=== PATIENT | female | born 1955 | race African-American/Black ===

== ENCOUNTER 2019-07-05 21:06 | Emergency (ER) | payer OTHER, SELFPAY ==
[2019-07-05 21:08] VITALS: BP 182/101; PULSE 106; RESP 16; TEMP 36.8; O2SAT 100
--- NOTE | 2019-07-05 21:23 | ED.HA ---
HPI - Headache General Chief Complaint: Headache Stated Complaint: PAIN IN POSTERIOR HEAD Time Seen by Provider: 07/05/19 21:19 Source: patient and RN notes reviewed Mode of arrival: other Limitations: no limitations History of Present Illness HPI Narrative: Pt is a 64 y/o female who presents to the ED with c/o intermittent sharp left postauricular pain that began at 7:30 AM. She notes that her pain has alleviated from a 10/10 to an 8/10. She notes that she took Tylenol today for her sx. Pt has a hx of HTN and she notes that she took her medication as prescribed today. She states that she is going to see her floor press operator tomorrow for her chronic chest pain. Pt also reports otalgia and resolved numbness in her fingers, but denies ringing in ears, nause, dizziness, tingling, CP currently, change in vision, difficulty walking, fever, rhinorrhea, and congestion. MD elicited complaint: headache Pertinent past history: hypertension Onset (ago): hour(s) (14) Time: 07:30 Location: other (posterior) Severity: moderate Pain scale (0-10): 8 Quality & Timing: sharp Associated symptoms: numbness (in fingers (resolved)) and other (otalgia) Treatments prior to arrival: acetaminophen Related Data Home Medications Medication Instructions Recorded Confirmed atorvastatin 10 mg tablet 10 mg PO DAILY 05/13/19 hydrochlorothiazide 25 mg tablet 25 mg PO DAILY 05/13/19 linaclotide 145 mcg capsule 145 mcg PO DAILY 05/13/19 lisinopril 20 mg tablet 20 mg PO DAILY 05/13/19 Allergies Allergy/AdvReac Type Severity Reaction Status Date / Time No Known Allergies Allergy Mild NONE Unverified 04/12/19 11:52 Review of Systems Review of Systems: All systems reviewed & are unremarkable except as noted in HPI and below Constitutional: Constitutional: Denies fever(s) and Denies other (difficulty walking) Eyes: Eyes: Denies change in vision ENT: Reports otalgia and Denies other (ringing in her ears, rhinorrhea, congestion) Cardiovascular: Cardiovascular: Denies chest pain (currently) Gastrointestinal: Gastrointestinal: Denies nausea Neurologic: Denies dizziness, Reports headache(s) (posterior), Reports numbness (resolved, in fingers) and Denies tingling PMFSH Past Medical History Medical History (Updated 07/06/19 @ 00:09 by Talya Ho MD) Essential (primary) hypertension GERD (gastroesophageal reflux disease) Inguinal hernia Mixed hyperlipidemia Prediabetes Vitamin D deficiency, unspecified Surgical History Surgical History (Updated 07/05/19 @ 21:35 by Jackie Kraft) H/O inguinal hernia repair History of hysterectomy History of thyroid surgery repair Social History Social History Smoking status: Never smoker Exam Narrative: Exam Narrative: GENERAL: Well-appearing, well-nourished, and in no acute distress. HEAD: Normocephalic, atraumatic EYES: PERRLA and EOMI, conjunctiva clear without discharge EARS: TM's clear bilaterally without erythema or dullness NOSE: Nares clear, no rhinorrhea or epistaxis THROAT:Mucous membranes moist, Oropharynx normal without erythema, exudate, peritonsillar swelling or fluctuance NECK: Supple, without lymphadenopathy or mass RESPIRATORY: No respiratory distress, Airway patent, Respirations non-labored, Clear to auscultation without rales, rhonchi or wheeze HEART: Regular rate and rhythm. No murmur heard. Normal peripheral pulses. ABDOMEN: Soft, nontender, nondistended, normal active bowel sounds. No masses. No rebound or guarding, No organomegaly. EXTREMITIES: No edema, normal strength with full range of motion. SKIN: Warm, dry, normal color without rash NEURO: Alert and oriented x3. CN 2-12 grossly intact. No focal deficits. PSYCH: Normal mood and affect. Course Reevaluation(s) Reevaluation #1: PAtient is sleeping. I woke her to reassess. She states her pain has completely resolved. Her evaluation has be
--- NOTE | 2019-07-05 21:51 | ECG_ITS ---
Measurements Intervals [place] Rate: 100 P: 50 TX: 195 QRS: 15 QRSD: 79 T: 58 QT: 336 QTc: 434 Interpretive Statements SINUS TACHYCARDIA LEFT VENTRICULAR HYPERTROPHY AND ST-T CHANGE NONSPECIFIC ST ABNORMALTY- ANTERIOR LEADS BASELINE WANDER- I, II, III, AVR, AVL, AVF BORDERLINE ECG Electronically Signed On 07-06-2019 7:03:41 SOLAR SALES ASSESSOR by Nikko Lowry D.O.
[2019-07-05] MEDS: KETOROLAC 30 MG/ML VIAL (*BKC) IV PUSH (22:09)
[2019-07-05 22:12] LABS: Basophils Absolute Auto 0.1 K/mm3 (0.0-0.1); Basophils Percent Auto 1.6 % (0.2-1.2); Eosinophils Absolute Auto 0.2 K/mm3 (0-0.3); Eosinophils Percent Auto 2.8 % (0-4.4); Hematocrit 35.4 % (37.0-47.0); Hemoglobin 11.1 g/dL (12.0-15.0); Immature Granulocyte Absolute 0.01 K/mm3 (0.00-0.031); Immature Granulocyte Percent A 0.2 % (0-0.5); Lymphocytes Absolute Auto 2.59 K/mm3 (0.9-3.2); Lymphocytes Percent Auto 44.9 % (18.3-44.2); Mean Corpuscular HGB Conc 31.4 g/dl (32-36); Mean Corpuscular Volume 86.1 fl (80-100); Mean Platelet Volume 10.2 fl (7.4-10.4); Monocytes Absolute Auto 0.5 K/mm3 (0.1-0.6); Monocytes Percent Auto 9.2 % (2.6-8.5); Neutrophils Absolute Auto 2.4 K/mm3 (1.3-6.7); Neutrophils Percent Auto 41.3 % (45.5-73.1); Platelet Count Result 282 k/mm3 (150-375); Red Blood Count 4.11 M/mm3 (4.2-5.4); Red Cell Distribution Width 15.4 % (11.5-14.5); White Blood Count 5.8 K/mm3 (4.5-10.0)
[2019-07-05 22:25] VITALS: BP 137/89; PULSE 84; RESP 18; O2SAT 100
[2019-07-05 22:27] LABS: Alanine Aminotransferase 16 U/L (4-35); Albumin Level 4.3 g/dL (3.5-5.1); Alkaline Phosphatase 63 U/L (38-126); Aspartate Amino Transferase 26 U/L (14-36); Bilirubin,Total 0.3 mg/dL (0.2-1.3); Blood Urea Nitrogen 16 mg/dL (7-17); CRP < 0.5 mg/dL (<1.0); Calcium 9.4 mg/dL (8.4-10.2); Carbon Dioxide 26 mmol/L (22-30); Chloride 104 mmol/L (98-107); Estimated CRCL calculation 52 ml/min; Estimated Glomerular Filt Rate > 60; Glucose 115 mg/dL (65-105); Potassium 3.9 mmol/L (3.4-5.0); Sodium 143 mmol/L (137-145)
[2019-07-05 23:42] VITALS: BP 156/91; PULSE 88; RESP 17; O2SAT 99
[2019-07-06 00:28] VITALS: BP 156/84; PULSE 81; RESP 16; TEMP 37; O2SAT 100
== END 2019-07-06 00:29 | disposition home or self-care (01) ==
PROVIDERS: Emergency Provider General Practice; PCP Family Medicine
DX: H92.02 Otalgia, left ear (principal); I10 Essential (primary) hypertension; K21.9 Gastro-esophageal reflux disease without esophagitis; E78.5 Hyperlipidemia, unspecified
CPT/HCPCS: 36415; 80053; 85025; 86140; 93005; 96374; 99284; J1885

== ENCOUNTER 2019-08-22 15:15 | Emergency (ER) | payer OTHER, SELFPAY ==
--- NOTE | ~2019-08-22 | CT_ITS ---
EXAMINATION: CT brain wo con DATE: 08/22/2019 16:17 INDICATION: Right-sided headache TECHNIQUE: Computed tomography (CT) of the head was performed without intravenous contrast. The mA wa s adjusted according to patient size. Iterative reconstruction technique was employed. Exam dose: 60 5.33 mGy-cm total exam DLP. COMPARISON: None FINDINGS: Cerebral atherosclerotic calcifications are noted. No intracranial mass lesion or hemorrhage or cerebrovascular accident is evident. No midline shift or mass effects. Normal ventricular size. No subdural or epidural hematoma. The orbital contents are unremarkable. No fracture or bone destruction of the cranial vault. The mastoid air cells and included paranasal si nuses are normally developed and aerated. IMPRESSION: No acute intracranial finding Reviewed, dictated and finalized at [facility]. Reviewed, dictated and finalized at location B.
[2019-08-22 15:15] VITALS: BP 161/94; PULSE 93; RESP 16; TEMP 36.6; O2SAT 100
--- NOTE | 2019-08-22 16:18 | ED.HA ---
HPI - Headache General Chief Complaint: Headache <David Mirza PA-C - Last Filed: 08/22/19 18:00> Stated Complaint: headache x2 wks <David Mirza PA-C - Last Filed: 08/22/19 18:00> Time Seen by Provider: 08/22/19 15:40 <David Mirza PA-C - Last Filed: 08/22/19 18:00> Source: patient <BUDDY Matos Last Filed: 08/22/19 18:00> Mode of arrival: ambulatory <BUDDY Matos Last Filed: 08/22/19 18:00> Limitations: no limitations <David Mirza PA-C - Last Filed: 08/22/19 18:00> History of Present Illness HPI Narrative: Patient presents with chief complaint of sharp right-sided headache that builds from her adventist down the right side of her face intermittently over the past 2 weeks. Patient states she originally thought the headaches were due to changes in her amlodipine and isosorbide dinitrate however the amlodipine was decreased back to her original 5 mg dose and isosorbide dinitrate was discontinued 1 week ago. Patient states that her ring conductor is Dr. Pham. Patient denies any changes in vision or hearing. Patient states having the headaches of the same area intermittently makes her scared that there is something going on inside of her brain. She denies speech changes or neurological deficits. Patient denies fever, chills, nausea, vomiting, diarrhea or any other symptoms. Patient denies any head injury. <David Mirza PA-C - Last Filed: 08/22/19 18:00> Related Data Home Medications: Home Medications Medication Instructions Recorded Confirmed atorvastatin 10 mg tablet 10 mg PO DAILY 05/13/19 hydrochlorothiazide 25 mg tablet 25 mg PO DAILY 05/13/19 linaclotide 145 mcg capsule 145 mcg PO DAILY 05/13/19 lisinopril 20 mg tablet 20 mg PO DAILY 05/13/19 aspirin 81 mg PO DAILY 08/22/19 <BUDDY Matos Last Filed: 08/22/19 18:00> Allergies/Adverse Reactions: Allergies Allergy/AdvReac Type Severity Reaction Status Date / Time No Known Allergies Allergy Mild NONE Verified 08/22/19 15:30 <David Mirza PA-C - Last Filed: 08/22/19 18:00> Review of Systems Review of Systems: Narrative: CONSTITUTIONAL: Denies fever, chills, or sweats. EYES: Denies visual changes, redness, or discharge. ENT: Denies rhinorrhea, congestion, sore throat, or otalgia. CARDIOVASCULAR: Denies chest pain, palpitations, or edema. RESPIRATORY: Denies cough or dyspnea. GASTROINTESTINAL: Denies abdominal pain, nausea, vomiting, or diarrhea. GENITOURINARY: Denies dysuria or hematuria. SKIN: Denies rash or itching. MUSCULOSKELETAL: Denies back pain, joint pain, or myalgia. NEUROLOGIC: Reports right sided headache, denies numbness, dizziness, or weakness. PSYCHIATRIC: Denies anxiety or depression. <David Mirza PA-C - Last Filed: 08/22/19 18:00> PMFSH Past Medical History Medical History: Medical History (Updated 08/22/19 @ 17:59 by David Mirza PA-C) Essential (primary) hypertension GERD (gastroesophageal reflux disease) Inguinal hernia Mixed hyperlipidemia Normal nuclear stress test 2..20 Prediabetes Vitamin D deficiency, unspecified <David Mirza PA-C - Last Filed: 08/22/19 18:00> Surgical History Surgical History: Surgical History (Updated 07/05/19 @ 21:35 by Jackie Kraft) H/O inguinal hernia repair History of hysterectomy History of thyroid surgery repair <David Mirza PA-C - Last Filed: 08/22/19 18:00> Social History Social History: Social History Smoking status: Never smoker <David Mirza PA-C - Last Filed: 08/22/19 18:00> Exam Narrative: Exam Narrative: GENERAL: Well-appearing, well-nourished, and in no acute distress. HEAD: Normocephalic, atraumatic. Not tender to palpation over temporal area. No tenderness with percussion of frontal or maxillary sinuses. EYES: PERRLA and EOMI. ENT: Nares clear, no rhinorrhea or epistaxis. Muco
[2019-08-22 16:44] LABS: Basophils Absolute Auto 0.1 K/mm3 (0.0-0.1); Basophils Percent Auto 1.7 % (0.2-1.2); Eosinophils Absolute Auto 0.1 K/mm3 (0-0.3); Eosinophils Percent Auto 1.6 % (0-4.4); Hematocrit 40.1 % (37.0-47.0); Hemoglobin 12.6 g/dL (12.0-15.0); Immature Granulocyte Absolute 0.02 K/mm3 (0.00-0.031); Immature Granulocyte Percent A 0.3 % (0-0.5); Lymphocytes Absolute Auto 2.91 K/mm3 (0.9-3.2); Lymphocytes Percent Auto 50.9 % (18.3-44.2); Mean Corpuscular HGB Conc 31.4 g/dl (32-36); Mean Corpuscular Hemoglobin 27.2 pg (26-34); Mean Corpuscular Volume 86.6 fl (80-100); Mean Platelet Volume 10.3 fl (7.4-10.4); Monocytes Absolute Auto 0.5 K/mm3 (0.1-0.6); Monocytes Percent Auto 8.4 % (2.6-8.5); Neutrophils Absolute Auto 2.1 K/mm3 (1.3-6.7); Neutrophils Percent Auto 37.1 % (45.5-73.1); Platelet Count Result 364 k/mm3 (150-375); Red Blood Count 4.63 M/mm3 (4.2-5.4); Red Cell Distribution Width 15.4 % (11.5-14.5); White Blood Count 5.7 K/mm3 (4.5-10.0)
[2019-08-22 16:46] LABS: Add Urine Microscopic? NO; Appearance Urine Clear (Clear); Bilirubin Urine Negative (Negative); Blood Urine Negative (Negative); Color Urine Colorless (Yellow); Glucose Urine UA Negative (Negative); Ketones Urine Negative (Negative); Leukocyte Esterase Ur Negative LEU/UL (Negative); Nitrate Urine Negative (Negative); Protein Urine Negative (Negative); Urobilinogen Urine Negative mg/dL (<2.0)
[2019-08-22 16:48] LABS: Specific Grav Ur 1.004 (1.001-1.035)
[2019-08-22 16:58] LABS: Alanine Aminotransferase 13 U/L (4-35); Albumin Level 4.7 g/dL (3.5-5.1); Alkaline Phosphatase 71 U/L (38-126); Aspartate Amino Transferase 21 U/L (14-36); Bilirubin,Total 0.3 mg/dL (0.2-1.3); Blood Urea Nitrogen 12 mg/dL (7-17); Calcium 9.9 mg/dL (8.4-10.2); Carbon Dioxide 32 mmol/L (22-30); Chloride 100 mmol/L (98-107); Estimated CRCL calculation 47 ml/min; Estimated Glomerular Filt Rate > 60; Glucose 111 mg/dL (65-105); Potassium 3.4 mmol/L (3.4-5.0); Sodium 139 mmol/L (137-145)
[2019-08-22 18:39] VITALS: BP 158/67; PULSE 72; RESP 12; O2SAT 98
== END 2019-08-22 18:41 | disposition home or self-care (01) ==
PROVIDERS: Physician Assistant; Emergency Provider Emergency Medicine; PCP Family Medicine
DX: R51 Headache (principal); I10 Essential (primary) hypertension; K21.9 Gastro-esophageal reflux disease without esophagitis; E78.2 Mixed hyperlipidemia; E55.9 Vitamin D deficiency, unspecified; R73.03 Prediabetes
CPT/HCPCS: 36415; 70450; 80053; 81003; 85025; 99284

== ENCOUNTER 2019-12-29 14:15 | Outpatient (CLI) | payer OTHER, SELFPAY ==
--- NOTE | ~2019-12-29 | MM_ITS ---
EXAMINATION: MM screening sybil BI w robyn HISTORY: Screening TECHNIQUE: Craniocaudal and mediolateral oblique 3-D tomosynthesis images were obtained and synthetic 2-D images were generated. CAD analysis was submitted and interpreted. COMPARISON: Comparison to multiple prior studies sequentially, with oldest reviewed study dated 12/2014. BREAST PARENCHYMAL COMPOSITION: The breasts are heterogenously dense, which may obscure small masses FINDINGS: There is no evidence of suspicious mass, calcification, or architectural distortion to sugg est malignancy in either breast. There has been no suspicious interval change. IMPRESSION: 1. No mammographic evidence of malignancy. 2. Recommend routine screening mammography in one year. BI-RADS Category 1: Negative Reviewed, dictated and finalized at location A.
== END 2019-12-29 14:16 | disposition home or self-care (01) ==
PROVIDERS: PCP Family Medicine; Visit Provider Family Medicine
DX: Z12.31 Encounter for screening mammogram for malignant neoplasm of breast (principal)
CPT/HCPCS: 77063; 77067

== ENCOUNTER 2020-02-10 10:59 | Outpatient (CLI) | payer OTHER, SELFPAY ==
--- NOTE | ~2020-02-10 | XR_ITS ---
EXAMINATION: XR lumbar spine min 4V DATE: 02/10/2020 11:22 INDICATION: Low back pain. TECHNIQUE: 5 views of lumbar spine were obtained. COMPARISON: Lumbar spine radiographs 08/07/2014 FINDINGS: Bone alignment is normal. Vertebral body heights are normal. There is mildly decreased disc height at L4-L5. There are endplate osteophytes at most levels. There is multilevel facet joint oste oarthritis, severe on the right at L4-L5. IMPRESSION: 1. Mild lumbar spondylosis. Reviewed, dictated and finalized at location A. IMPRESSION: 1. Mild lumbar spondylosis.
== END 2020-02-10 11:00 | disposition home or self-care (01) ==
PROVIDERS: PCP Family Medicine; Visit Provider Family Medicine
DX: M47.896 Other spondylosis, lumbar region (principal)
CPT/HCPCS: 72110

== ENCOUNTER 2020-03-21 12:00 | Outpatient (CLI) | payer OTHER, SELFPAY ==
--- NOTE | ~2020-03-21 | XR_ITS ---
XR_RIBSBI_CR DATE: 03/21/2020 12:49 INDICATION: Bilateral rib pain TECHNIQUE: Multiple views of left and right ribs COMPARISON: None FINDINGS: No fracture or bone destruction is evident. No pulmonary infiltrate or consolidation or ple ural effusion or pneumothorax is detected. Surgical clips overlie the right cervical area. There is degenerative change and mild scoliosis of the thoracic spine. IMPRESSION: No rib fracture or bone destruction detected Reviewed, dictated and finalized at [facility]. Reviewed, dictated and finalized at location A.
== END 2020-03-21 12:01 | disposition home or self-care (01) ==
PROVIDERS: PCP Family Medicine; Visit Provider Family Medicine
DX: R07.81 Pleurodynia (principal)
CPT/HCPCS: 71110

== ENCOUNTER 2020-07-23 09:33 | Outpatient (CLI) | payer OTHER, SELFPAY ==
--- NOTE | ~2020-07-23 | XR_ITS ---
EXAMINATION: XR hand BI arthritis min 3V EXAM DATE: 07/23/2020 09:56 INDICATION: No known recent injury provided at this time. Pain of the hands. TECHNIQUE: Right hand frontal, lateral and oblique projections obtained and reviewed. Left hand fron sruthi, lateral and oblique projections obtained and reviewed. Catchers projection of both hands. Correl ation is made to right wrist exam 01/20/2014. FINDINGS: Right hand: There is mild polyarticular interphalangeal primary osteoarthritis. There is erosion in the scaphoid at the radioscaphoid articulation, probably a subchondral cyst of primary osteoarthritis . No other erosions are identified. There are no acute fractures identified. The soft tissue is unre markable. Scapholunate joint space is maintained. Left hand: There is mild polyarticular interphalangeal primary osteoarthritis. There is erosion in the scaphoid at the radioscaphoid articulation, probably a subchondral cyst of primary osteoarthritis . No other erosions are identified. There are no acute fractures identified. The soft tissue is unre markable. Scapholunate joint space is maintained. IMPRESSION: 1. Mild bilateral polyarticular interphalangeal osteoarthritis. 2. Symmetric scaphoid erosions probably subchondral cysts. Reviewed, dictated and finalized at location A. ARY MONITOR
--- NOTE | ~2020-07-23 | XR_ITS ---
EXAMINATION: XR shoulder LT min 2V DATE: 07/23/2020 09:56 INDICATION: Left shoulder pain. TECHNIQUE: 4 views of left shoulder were obtained. COMPARISON: None. FINDINGS: Bone alignment is normal. No fracture. There is mild osteoarthritis of glenohumeral joint a nd acromioclavicular joint characterized by tiny marginal osteophytes. IMPRESSION: 1. Mild polyarticular osteoarthritis. Reviewed, dictated and finalized at location A. LLIGENCE SENIOR SERGEANT
--- NOTE | ~2020-07-23 | XR_ITS ---
EXAMINATION: XR shoulder RT min 2V DATE: 07/23/2020 09:56 INDICATION: Right shoulder pain. TECHNIQUE: 4 views of right shoulder were obtained. COMPARISON: None. FINDINGS: Bone alignment is normal. No fracture. There is mild osteoarthritis of glenohumeral joint. Acromioclavicular joint is normal. There are mild airspace opacities in right lower lung zone. There are surgical clips in the neck. IMPRESSION: 1. Mild osteoarthritis of glenohumeral joint. 2. Mild airspace opacities in right lower lung zone, consistent with atelectasis versus pneumonia. Reviewed, dictated and finalized at location A. OMER SERVICE OFFICER IMPRESSION: 1. Mild osteoarthritis of glenohumeral joint. 2. Mild airspace opacities in right lower lung zone, consistent with atelectasi s versus pneumonia.
== END 2020-07-23 09:34 | disposition home or self-care (01) ==
LOC: ANHIMG 09:39
PROVIDERS: PCP Family Medicine; Visit Provider Family Medicine
DX: Z11.59 Encounter for screening for other viral diseases (principal); R10.9 Unspecified abdominal pain; M25.50 Pain in unspecified joint; R73.03 Prediabetes; E78.2 Mixed hyperlipidemia; Z79.899 Other long term (current) drug therapy; M19.012 Primary osteoarthritis, left shoulder; M19.011 Primary osteoarthritis, right shoulder; M19.042 Primary osteoarthritis, left hand; M19.041 Primary osteoarthritis, right hand
CPT/HCPCS: 73030; 73130

== ENCOUNTER 2020-07-26 13:25 | Outpatient (CLI) | payer OTHER, SELFPAY ==
--- NOTE | ~2020-07-26 | CT_ITS ---
EXAMINATION: CT abdomen pelvis wo con DATE: 07/26/2020 13:55 INDICATION: Unspecified abdominal pain TECHNIQUE: Computed tomography (CT) of the abdomen and pelvis was performed without intravenous contr ast. The dose-length product (DLP) was 699.63 mGy-cm. Automated exposure control and iterative recons truction technique were employed. COMPARISON: 03/10/2013 FINDINGS: Again seen are scattered 1 to 2 mm groundglass nodules throughout the visualized lung bases which have not significantly changed, likely infection or inflammation. The heart size is normal. Cy sts of the liver measure up to 11 mm. The spleen, pancreas, gallbladder, and adrenal glands are cristobal l. The kidneys are unremarkable. No pathologically enlarged abdominal or pelvic lymph nodes are ident ified. There is no free intraperitoneal gas or evidence of bowel obstruction. The appendix is normal. There is a moderate volume of colonic stool. There is mild lumbar spondylosis. A tiny epigastric her artie containing fat is noted. IMPRESSION: 1. Constipation. Reviewed, dictated and finalized at location A. INIST FIRST CLASS IMPRESSION: 1. Constipation.
== END 2020-07-26 13:26 | disposition home or self-care (01) ==
PROVIDERS: PCP Family Medicine; Visit Provider Family Medicine
DX: E78.2 Mixed hyperlipidemia (principal); M25.50 Pain in unspecified joint; R10.9 Unspecified abdominal pain; R73.03 Prediabetes; Z11.59 Encounter for screening for other viral diseases; Z79.899 Other long term (current) drug therapy; K59.00 Constipation, unspecified
CPT/HCPCS: 74176

== ENCOUNTER 2020-08-10 10:14 | Outpatient (CLI) | payer OTHER, SELFPAY ==
--- NOTE | 2020-08-10 15:51 | P.PCNPFT_ITS ---
PFT Interpretation This is a pulmonary function test with pre and post-bronchodilator spirometry, plethysmography and diffusing capacity. The test was performed and results interpreted in accordance with the 2019 and 2005 ATS/ERS Task Force guidelines respectively using the Global Lung Function Initiative-2012 reference equations. Patient demonstrated good effort and c ooperation. Reproducibility criteria were met. The quality of the pre bronchodilator spirometry maneuver was Grade A and post bronchodilator spirometry maneuver was Grade A. Findings: Spirometry: The contour the inspiratory and expiratory flow tracing are normal. The pre bronchodilator FVC is 2.43 L, 109% predicted. The pre bronchodilator FEV1 is 2.01 L, 113% predicted. The FEV1: FVC ratio was 83%. The post bronchodilator FVC is 2.25 L, representing a 7% decrease. The post bronchodilator FEV1 is 1.95 L, representing a 3% decrease. Plethysmography: The total lung capacity is 4.42 L, 113% predicted. The functional residual capacity is 0.81 L, 35% predicted. The residual volume is 0.73 L, 42% predicted. Diffusing capacity: The absolute diffusion capacity is 16.9, 86% predicted. The diffusing capacity corrected for alveolar volume is 4.97, 109% predicted. Impression: The spirometry is normal without evidence of an obstructive abnormality. There is no significant improvement after inhaling a single dose of albuterol. There is a reduction in the residual volume and functional residual capacity with a normal total lung capacity. This is an abnormal but nonspecific lung volume pattern. The diffusing capacity is normal. There are no prior studies for comparison
== END 2020-08-10 10:15 | disposition home or self-care (01) ==
PROVIDERS: PCP Family Medicine; Visit Provider Family Medicine
DX: R91.8 Other nonspecific abnormal finding of lung field (principal)
CPT/HCPCS: 94060; 94726; 94729

== ENCOUNTER 2020-11-23 16:34 | Outpatient (CLI) | payer OTHER, SELFPAY ==
--- NOTE | ~2020-11-23 | CT_ITS ---
CORRECTED REPORT Description changed from Lung Ca Screening to CT chest hi-res [id number] EXAMINATION: CT/CT chest high resolution wo ma EXAM DATE: 11/23/2020 17:11 INDICATION: R91.8 - Other nonspecific abnormal finding of lung field . TECHNIQUE: Spiral low dose CT of the chest without contrast. Axial, coronal and sagittal images were reviewed. The dose-length product (DLP) for this examination was 91.22 mGy-cm. The exposure was tailored according to patient size (auto mA exposure control), and iterative reconstruction (ASIR) was used as additional dose reduction technique. There is no prior study for comparison. FINDINGS: Chronic scattered basilar tree-in-bud distribution punctate basilar groundglass nodules, likely postinfectious residua or other chronic pneumonitis. Linear lingular, right lower lobe and right middle lobe subsegmental atelectasis. Mild emphysema. Mild bronchiectasis. Tracheobronchial tree is patent. There is no mediastinal, hilar or axillary lymphadenopathy. There are no pleural or pericardial effusions. There is no pneumothorax. Heart normal in size. No evidence of coronary arterial calcification. Right thyroid lobectomy. Small liver cysts. There is thoracic spondylosis without osteoblastic or osteolytic lesions identified. IMPRESSION: Lung-RADS category 2, benign appearance or behavior (<1% chance of malignancy). Reviewed, dictated and finalized at location A. MTDD
== END 2020-11-23 16:35 | disposition home or self-care (01) ==
LOC: ANHIMG 16:35
PROVIDERS: PCP Family Medicine; Visit Provider Internal Medicine Critical Care Medicine
DX: R91.8 Other nonspecific abnormal finding of lung field (principal)
CPT/HCPCS: 71250; 71271

== ENCOUNTER 2021-04-02 11:48 | Outpatient (CLI) | payer OTHER, SELFPAY ==
--- NOTE | ~2021-04-02 | MM_ITS ---
EXAMINATION: MM diagnostic sybil BI w robyn HISTORY: Right breast lump, not felt today TECHNIQUE: ML, MLO and craniocaudal 3-D tomosynthesis images of both breasts were performed and synth etic 2-D images were generated. CAD analysis was submitted and interpreted. COMPARISON: 12/29/2019, 09/10/2016bilateral screening mammogram examinations BREAST PARENCHYMAL COMPOSITION: There are scattered areas of fibroglandular density. FINDINGS: No suspicious mass or architectural distortion, malignant calcification, skin thickening or retraction or significant new or developing density is detected. IMPRESSION: 1. No mammographic evidence of malignancy 2. Routine mammographic screening is recommended BI-RADS Category 1: Negative Reviewed, dictated and finalized at location A. IPLE WIRE SAWYER
== END 2021-04-02 11:49 | disposition home or self-care (01) ==
LOC: ANHIMG 11:50
PROVIDERS: PCP Family Medicine; Visit Provider Physician Assistant Medical
DX: N63.0 Unspecified lump in unspecified breast (principal)
CPT/HCPCS: 77062; 77066; G0279

== ENCOUNTER 2021-08-27 11:24 | Emergency (ER) | payer OTHER, SELFPAY ==
--- NOTE | ~2021-08-27 | XR_ITS ---
EXAMINATION: XR knee LT min 4V DATE: 08/27/2021 12:51 INDICATION: Left knee pain. TECHNIQUE: 4 views of left knee were obtained. COMPARISON: None. FINDINGS: Bone alignment is normal. No fracture. There is moderate osteoarthritis of medial compartme nt and mild osteoarthritis of patellofemoral compartment. There is a large knee joint effusion. IMPRESSION: 1. Moderate left knee osteoarthritis. 2. Large left knee joint effusion. Reviewed, dictated and finalized at location A.
--- NOTE | ~2021-08-27 | US_ITS ---
EXAMINATION: US venous doppler [facility] DATE: 08/27/2021 12:47 INDICATION: Left lower limb pain. TECHNIQUE: Grayscale ultrasound images without and with compression and Doppler ultrasound images of the left lower extremity veins were obtained. COMPARISON: None. FINDINGS: The visualized portions of left common femoral vein, profunda (deep) femoral vein, femoral vein, popl iteal vein, peroneal veins, posterior tibial veins, and greater saphenous vein outflow are patent. IMPRESSION: 1. No deep venous thrombosis. Reviewed, dictated and finalized at location A.
[2021-08-27 11:29] VITALS: BP 124/69; PULSE 99; RESP 18; TEMP 36.5; O2SAT 99
--- NOTE | 2021-08-27 12:05 | ED.EXTPRO ---
HPI - Extremity Problem General Chief complaint: Extremity Problem,Nontraumatic Stated complaint: leg pain Time Seen by Provider: 08/27/21 12:01 Source: patient and family Mode of arrival: ambulatory Limitations: no limitations History of Present Illness HPI Narrative: The patient is a 66-year-old female with a history of hypertension, prediabetes, presenting to the emergency department for evaluation of left leg pain. Patient reports she had onset of left leg pain approximately 2 months ago. She was seen by her primary care provider and advised to put a lidocaine ointment on the leg. Patient states that that has not been helping her leg pain. Patient states that she recently traveled to [place] and arrived back to the [facility] 2 days ago. Patient reports swelling and pain overlying and behind the left knee. Pain is dull, aching in nature, worsened with movement. She denies history of fall or injury. No redness, mild warmth behind the left knee. She denies any chest pain, shortness of breath. Denies fever, chills, cough or hemoptysis. She denies any calf pain, swelling or redness. Patient has not been taking any medication for the pain. She denies any weakness or numbness in the left leg. Related Data Home Medications Medication Instructions Recorded Confirmed aspirin 81 mg PO DAILY 08/22/19 05/30/21 Allergies Allergy/AdvReac Type Severity Reaction Status Date / Time No Known Allergies Allergy Mild NONE Verified 05/30/21 09:56 Review of Systems Review of Systems: CONSTITUTIONAL: Denies fever, chills, or sweats. EYES: Denies visual changes, redness, or discharge. ENT: Denies rhinorrhea, congestion, sore throat, or otalgia. CARDIOVASCULAR: Denies chest pain, palpitations, or edema. RESPIRATORY: Denies cough or dyspnea. GASTROINTESTINAL: Denies abdominal pain, nausea, vomiting, or diarrhea. GENITOURINARY: Denies dysuria or hematuria. SKIN: Denies rash or itching. MUSCULOSKELETAL: Denies back pain, reports posterior left leg pain, left leg swelling NEUROLOGIC: Denies headache, numbness, or weakness. FOR[facility]LY [facility], [facility] Past Medical History Medical History Abdominal pain Chronic fibrous thyroiditis Essential (primary) hypertension Generalized osteoarthritis of multiple sites (~2009) GERD (gastroesophageal reflux disease) Inguinal hernia Itching Mixed hyperlipidemia Neck pain Normal nuclear stress test 2.26.20 Positive PPD Prediabetes Trigeminal neuralgia of right side of face Vitamin D deficiency, unspecified Surgical History Surgical History H/O inguinal hernia repair History of hysterectomy History of thyroid surgery repair Family History Family History Mother Hypertension Cerebrovascular accident Social History Social History Smoking status: Never smoker Alcohol intake: never Substance use: never Substance use type: does not use Gender identity (if verbalized by the patient): Female Spiritual care concerns: Yes Agree to blood products: Yes Exam Narrative: GENERAL: Awake, alert, conversant HEAD: Normocephalic, atraumatic. EYES: PERRLA and EOMI. ENT: Nares clear, no rhinorrhea or epistaxis. Mucous membranes moist. NECK: Supple. CHEST: No respiratory distress, breathing even and non labored HEART: Regular rate, sinus rhythm ABDOMEN:Non distended, non tender EXTREMITIES: Normal range of motion. Tenderness on the medial aspect of the left knee, posterior to the knee with mild edema, warmth. No significant erythema, there is a large anterior superior knee effusion. Patella is midline, nontender to palpation. Patient has intact flexion and extension with limited range of motion secondary to pain. Intact distal sensation. DP pulse 2+ in the bilateral lower extrem
[2021-08-27] MEDS: oxyCODONE/ACETAMINOPHEN (*CRX) 5-325 MG TABLET 1 TABLET PO (12:54)
[2021-08-27 14:17] LABS: Basophils Absolute Auto 0.1 K/mm3 (0.0-0.1); Basophils Percent Auto 1.1 % (0.2-1.2); Eosinophils Absolute Auto 0.2 K/mm3 (0-0.3); Eosinophils Percent Auto 2.1 % (0-4.4); Hematocrit 37.9 % (37.0-47.0); Immature Granulocyte Absolute 0.02 K/mm3 (0.00-0.031); Immature Granulocyte Percent A 0.3 % (0-0.5); Lymphocytes Absolute Auto 3.24 K/mm3 (0.9-3.2); Lymphocytes Percent Auto 45.5 % (18.3-44.2); Mean Corpuscular HGB Conc 31.7 g/dl (32-36); Mean Corpuscular Hemoglobin 28.2 pg (26-34); Mean Platelet Volume 9.5 fl (7.4-10.4); Monocytes Absolute Auto 0.5 K/mm3 (0.1-0.6); Monocytes Percent Auto 7.2 % (2.6-8.5); Neutrophils Absolute Auto 3.1 K/mm3 (1.3-6.7); Neutrophils Percent Auto 43.8 % (45.5-73.1); Platelet Count Result 393 k/mm3 (150-375); Red Blood Count 4.26 M/mm3 (4.2-5.4); Red Cell Distribution Width 16.1 % (11.5-14.5); White Blood Count 7.1 K/mm3 (4.5-10.0)
[2021-08-27 14:23] LABS: Anion Gap 4 mmol/L (8-16); Blood Urea Nitrogen 23 mg/dL (7-17); CRP 0.8 mg/dL (<1.0); Calcium 8.9 mg/dL (8.4-10.2); Carbon Dioxide 32 mmol/L (22-30); Chloride 102 mmol/L (98-107); Estimated Glomerular Filt Rate 60; Glucose 91 mg/dL (65-110); Sodium 138 mmol/L (137-145)
[2021-08-27 14:43] LABS: Erythrocyte Sedimentation Rate 55 mm/hr (0-20)
[2021-08-27 14:52] LABS: Appearance Synovial Fluid Hazy (Clear); Color Synovial Fluid Yellow (Colorless); Source Synovial Fluid Synovial fluid
[2021-08-27 15:14] LABS: Lymphocytes Synovial Fluid 72 %; Monocytes Synovial Fluid 7 %; Neutrophils Synovial Fluid 21 % (0-25)
[2021-08-27 15:54] LABS: Crystals Synovial Fluid Few Cppd (None Seen)
[2021-09-01 04:55] LABS: Glucose Synovial Fluid 99 mg/dL
== END 2021-08-27 16:52 | disposition home or self-care (01) ==
PROVIDERS: Emergency Provider Emergency Medicine; PCP Family Medicine
DX: M17.12 Unilateral primary osteoarthritis, left knee (principal); I10 Essential (primary) hypertension; E78.2 Mixed hyperlipidemia; R73.03 Prediabetes; G50.0 Trigeminal neuralgia; Z79.82 Long term (current) use of aspirin
CPT/HCPCS: 20610; 36415; 73564; 80048; 82945; 84157; 85025; 85652; 86140; 87070; 87075; 87205; 89051; 89060; 93971; 99284; A9270

== ENCOUNTER 2022-11-04 11:22 | Outpatient (CLI) | payer MEDICARE, SELFPAY ==
--- NOTE | ~2022-11-04 | MM_ITS ---
EXAMINATION: MM screening sybil BI w robyn HISTORY: Screening mammogram TECHNIQUE: Craniocaudal and mediolateral oblique 3-D tomosynthesis images were obtained and synthetic 2-D images were generated. CAD analysis was submitted and interpreted. COMPARISON: 04/12/2021 diagnostic bilateral mammogram 12/29/2019, 09/10/2016 bilateral screening mammograms BREAST PARENCHYMAL COMPOSITION: There are scattered areas of fibroglandular density. FINDINGS: There is no evidence of suspicious mass, calcification, or architectural distortion to sugg est malignancy in either breast. There has been no suspicious interval change. IMPRESSION: 1. No mammographic evidence of malignancy. 2. Recommend routine screening mammography in one year. BI-RADS Category 1: Negative Reviewed, dictated and finalized at location A.
== END 2022-11-04 11:23 | disposition home or self-care (01) ==
LOC: CHSIMG 11:28
PROVIDERS: PCP Family Medicine; Visit Provider Family Medicine
DX: Z12.31 Encounter for screening mammogram for malignant neoplasm of breast (principal)
CPT/HCPCS: 77063; 77067

== ENCOUNTER 2022-12-03 15:04 | Outpatient (CLI) | payer MEDICARE, SELFPAY ==
[2022-12-03 15:59] LABS: Kit Draw Collected
== END 2022-12-03 15:05 | disposition home or self-care (01) ==
LOC: ANHGOSHLAB 15:05
PROVIDERS: PCP Family Medicine; Visit Provider Family Medicine
DX: Z23 Encounter for immunization (principal)
CPT/HCPCS: 36415

== ENCOUNTER 2023-12-24 07:55 | Outpatient (CLI) | payer MEDICARE, SELFPAY ==
--- NOTE | ~2023-12-24 | XR_ITS ---
XR chest 2V Ordering provider: Jazmyn Corral MD History: 68 years Female with . persistent cough . Comparison: November 13, 2013 FINDINGS: MEDIASTINUM: The cardiac silhouette is not enlarged. LUNGS: No infiltrates, effusions or pneumothorax. Prominent bronchovascular markings bilaterally. OTHER: No free air under the diaphragm. Degenerative the spine. IMPRESSION: No acute cardiopulmonary pathology. Reviewed, dictated and finalized at location A.
--- NOTE | ~2023-12-24 | MM_ITS ---
EXAMINATION: MM screening sybil BI w robyn HISTORY: Screening TECHNIQUE: Craniocaudal and mediolateral oblique 3-D tomosynthesis images were obtained and synthetic 2-D images were generated. CAD analysis was submitted and interpreted. COMPARISON: Comparison to multiple prior studies sequentially, with oldest reviewed study dated 2014. BREAST PARENCHYMAL COMPOSITION: Not dense: There are scattered areas of fibroglandular density. FINDINGS: There is no evidence of suspicious mass, calcification, or architectural distortion to sugg est malignancy in either breast. There has been no suspicious interval change. IMPRESSION: 1. No mammographic evidence of malignancy. 2. Recommend routine screening mammography in one year. BI-RADS Category 1: Negative Reviewed, dictated and finalized at location B.
== END 2023-12-24 07:56 | disposition home or self-care (01) ==
LOC: CHSIMG 07:57
PROVIDERS: PCP Family Medicine; Visit Provider Family Medicine
DX: R05.3 Chronic cough (principal); Z12.31 Encounter for screening mammogram for malignant neoplasm of breast
CPT/HCPCS: 71046; 77063; 77067

== ENCOUNTER 2025-01-17 12:35 | Outpatient (CLI) | payer MEDICARE, SELFPAY ==
--- NOTE | ~2025-01-17 | MM_ITS ---
EXAMINATION: MM screening sybil BI w robyn HISTORY: Screening TECHNIQUE: Craniocaudal and mediolateral oblique 3-D tomosynthesis images were obtained and synthetic 2-D images were generated. CAD analysis was submitted and interpreted. COMPARISON: Comparison to multiple prior studies sequentially, with oldest reviewed study dated 12/04/2009. BREAST PARENCHYMAL COMPOSITION: There are scattered areas of fibroglandular density. FINDINGS: There is no evidence of suspicious mass, calcification, or architectural distortion to suggest malignancy in either breast. IMPRESSION: 1. No mammographic evidence of malignancy. 2. Recommend routine screening mammography in one year. BI-RADS Category 1: Negative Reviewed, dictated and finalized at location B.
--- OUTSIDE RECORDS SUMMARY | 2025-01-17 12:39 | XMS_ITS | Clinical Summary ---
Author [place] [facility] [place] [address] Address [address] [place] [address] Care Team Providers Care Heating Fixture Tender Name Role Phone Jazmyn Corral MD Primary Care Provider + Allergies Active Allergy Reactions Criticality Noted Date Comments Prednisone Headache Low 07/06/2019 Medications lisinopril (PRINIVIL,ZESTRI L) 20 mg tablet Take 20 mg by mouth daily 04/18/2019 Active atorvastatin (LIPITOR) 10 mg tablet Take 10 mg by mouth daily 04/18/2019 Active LINZESS 145 mcg capsule Take 145 mcg by mouth daily 04/06/2019 Active hydroCHLOROthiaz margarita (HYDRODIURIL) 25 mg tablet Take 25 mg by mouth daily 04/18/2019 Active aspirin 81 mg enteric coated tablet Take 81 mg by mouth daily Active amLODIPine (NORVASC) 5 mg tablet Take 5 mg by mouth daily Active isosorbide mononitrate ER (IMDUR) 30 mg 24 hr tablet Take 1 tablet (30 mg total) by mouth daily 30 tablet 11 07/27/2019 Active Active Problems No known active problems Surgical History Surgery Date Site/Laterality Comments HERNIA REPAIR HYSTERECTOMY THYROID SURGERY Medical History Medical History Date Comments Hyperlipidemia Hypertension Thyroid disease Keloid of skin Anemia Family History Medical History Relation Name Comments Hypertension Mother Relation Name Status Comments Father (Age 93) Mother (Age 76) Social History Tobacco Use Types Packs/Day Years Used Date Smoking Tobacco: Never Smokeless Tobacco: Never Alcohol Use Standard Drinks/Week Comments Not Currently 0 (1 standard drink = 0.6 oz pur e alcohol) Personal Safety Answer Date Recorded Getting School Help Needed Not on file 08/08 Comments Unknown Sex and Gender Information Value Date Recorded Sex Assigned at Not on file Legal Sex Female 3:19 AM POL[employer]ER [employer] Gender Identity Not on file Sexual Orientation Not on file Obstetrics History Last Filed Vital Signs Vital Sign Reading Time Taken Comments Blood Pressure 118/74 07/27/2019 11:35 AM POLISH[employer] Pulse 83 07/27/2019 11:35 AM POLISH[employer] Temperature - - Respiratory Rate - - Oxygen Saturation 98% 07/27/2019 11:35 AM POL[employer]ER [employer]AMES Inhaled Oxygen Concentration - - Weight 79.8 kg (176 lb) 07/27/2019 11:35 AM POL[employer] Height 152.4 cm (5') 07/27/2019 11:35 AM POL[employer]AMES Body Mass Index 34.37 07/27/2019 11:35 AM POL[employer]AMES Plan of Treatment Not on file Insurance [employer] OPEN ACCESS Care Teams Heating Fixture Tender Relationship Specialty Start Date End Date Jazmyn Corral MD PCP - General Family Medicine 05/17/19
== END 2025-01-17 12:36 | disposition home or self-care (01) ==
LOC: CHSIMG 12:37
PROVIDERS: PCP Family Medicine; Visit Provider Student in an Organized Health Care Education/Training Program
DX: Z12.31 Encounter for screening mammogram for malignant neoplasm of breast (principal)
CPT/HCPCS: 77063; 77067

== ENCOUNTER → 2025-02-08 09:18 | Outpatient (REF) | payer MEDICARE, SELFPAY ==
--- NOTE | 2025-02-08 09:18 | S_PTH ---
PATIENT: Teresa Wang LOC: ANAB #:[id number] AGE/SX: 69/F ROOM: RE02/08/[address]: Luis Benitez MD : 1955 BED: DIS: SPEC #: [id number] RECD: 02/08/25 11:14 STATUS: RENATO RE #: [id number] DEMARIO: 02/08/25 09:[address]: Luis Benitez DEPT: [facility] Surgical RECD BY: Kelly Segura ENTERED: 02/08/25 11:14 SP TYPE: Surgical OTHR DR: Jazmyn Corral MD Tissues: A - Skin Procedures: Hematoxylin and Eosin Stain Gross and Microscopic Level 4
--- OUTSIDE RECORDS SUMMARY | 2025-02-08 10:06 | XMS_ITS | Clinical Summary ---
Author Organization [facility] [place] [address] Address [address] [place] [address] Care Team Providers Care Shale Miner Name Role Phone Jazmyn Corral MD Primary [...] on file Legal Sex Female 3:19 AM BOX STACKER Gender Identity Not on file Sexual Orientation Not on file Obstetrics History Last Filed Vital Signs Vital Sign Reading Time Taken Comments Blood Pressure 118/74 07/27/2019 11:35 AM BOX STACKER Pulse 83 07/27/2019 11:35 AM BOX STACKER Temperature - - Respiratory Rate - - Oxygen Saturation 98% 07/27/2019 11:35 AM BOX STACKER Inhaled Oxygen Concentration - - Weight 79.8 kg (176 lb) 07/27/2019 11:35 AM BOX STACKER Height 152.4 cm (5') 07/27/2019 11:35 AM BOX STACKER Body Mass Index 34.37 07/27/2019 11:35 AM BOX STACKER Plan of Treatment Not on file Insurance [employer] OPEN ACCESS Care Teams Shale Miner Relationship Specialty Start Date End Date Jazmyn Corral MD PCP - General Family Medicine 05/17/19
== END ==
LOC: ANHLAB 09:18
PROVIDERS: PCP Family Medicine; Visit Provider Plastic Surgery
DX: L91.0 Hypertrophic scar (principal); D48.5 Neoplasm of uncertain behavior of skin
CPT/HCPCS: 88305